=== PATIENT | female | born 1965 | race Caucasian/White ===

== ENCOUNTER → 2016-10-14 | Outpatient (CLI) | payer BC ==
--- NOTE | 2016-10-14 15:37 | XR ---
EXAMINATION TYPE: XR chest 2V DATE OF EXAM: 10/14/2016 1:19 PM COMPARISON: NONE HISTORY: Chest pain TECHNIQUE: Frontal and lateral views of the chest are obtained. FINDINGS: There is no focal air space opacity, pleural effusion, or pneumothorax seen. The cardiac silhouette size is within normal limits. Prominent lung finding could be indicative of underlying C OPD. There are bilateral breast prostheses. The osseous structures are intact. IMPRESSION: No acute cardiopulmonary process.
== END | disposition home or self-care (01) ==
LOC: RADXRMAIN 12:53
PROVIDERS: ATTEND Family Medicine
DX: R07.89 Other chest pain (principal)
CPT/HCPCS: 71020

== ENCOUNTER → 2017-01-19 | Outpatient (CLI) | payer BC ==
--- NOTE | 2017-01-20 07:55 | US ---
EXAMINATION TYPE: US carotid duplex BILAT DATE OF EXAM: 01/19/2017 6:03 PM COMPARISON: NONE CLINICAL HISTORY: I65.29 Occlusion and Stenosis of Carotid Artery. Stenosis EXAM MEASUREMENTS: RIGHT: Peak Systolic Velocity (PSV) cm/sec ----- Right CCA: 68.6 ----- Right ICA: 83.4 ----- Right ECA: 102.9 ICA/CCA ratio: 1.2 RIGHT: End Diastole cm/sec ----- Right CCA: 24.1 ----- Right ICA: 32.8 ----- Right ECA: 21.5 LEFT: Peak Systolic Velocity (PSV) cm/sec ----- Left CCA: 78.7 ----- Left ICA: 100.7 ----- Left ECA: 91.9 ICA/CCA ratio: 1.3 LEFT: End Diastole cm/sec ----- Left CCA: 29.2 ----- Left ICA: 35.8 ----- Left ECA: 20.4 VERTEBRALS (direction of flow): Right Vertebral: Antegrade Left Vertebral: Antegrade No elevated velocities, no significant stenosis IMPRESSION: I DO NOT SEE EVIDENCE OF A HEMODYNAMICALLY SIGNIFICANT STENOSIS IN EITHER CAROTID SYSTEM. Criteria for Assigning % of Stenosis / Diameter reduction (Estimation based on the indirect measurements of the internal carotid artery velocities (ICA PSV). 1. Normal (no stenosis)=ICA PSV < 125 cm/s: ratio < 2.0: ICA EDV<40 cm/s. 2. Less than 50% stenosis=ICA PSV < 125 cm/s: ratio < 2.0: ICA EDV<40 cm/s. 3. 50 to 69% stenosis=ICA PSV of 125 to 230 cm/s: ration 2.0 ? 4.0: ICA EDV 40-100 cm/s. 4. Greater than 70% stenosis to near occlusion= ICA PSV > 230 cm/s: ratio > 4.0: ICA EDV > 100 cm/s. 5. Near occlusion= ICA PSV velocities may be low or undetectable: variable ratio and ICA EDV. 6. Total occlusion=unable to detect flow.
== END ==
LOC: RADUSMAIN 17:47
PROVIDERS: ATTEND Family Medicine
DX: I65.29 Occlusion and stenosis of unspecified carotid artery (principal)
CPT/HCPCS: 93880

== ENCOUNTER → 2017-02-02 | Outpatient (CLI) | payer BC ==
--- NOTE | 2017-02-02 12:47 | US ---
EXAMINATION TYPE: US duplex aorta DATE OF EXAM: 02/02/2017 9:18 AM COMPARISON: NONE CLINICAL HISTORY: 51-year-old female R09.89 Other spec sx/signs involving circulatory/res. Abdominal bruit; smoker x many years at 1/2 pack per day. TECHNIQUE: Multiple sonographic images of the abdominal aorta were obtained. FINDINGS: EXAM MEASUREMENTS: Abdominal Aorta: Proximal: 2.1cm Transverse Mid: 1.8cm A/P Distal: 1.3cm Transverse Bifurcation: Right CIA1.10 cm A/P ; Left DMITRIY 1.0cm transverse There is prominent at this chronic change at the level of the mid abdominal aorta with some turbulenc e and accelerated flow across this level. NUCLEAR MEDICINE TECHNOLOGIST NOTES: Irregular intimal wall thickening is noted mid aorta with moderately elevated PSV of 214.1cm/s at this area. IMPRESSION: 1. No sonographic evidence for any significant abdominal aortic ectasia or aneurysm. 2. Prominent atherosclerotic change in the mid abdominal aorta narrowing the patent lumen.
== END | disposition home or self-care (01) ==
LOC: RADUSWWP 08:59
PROVIDERS: ATTEND Family Medicine
DX: I71.4 Abdominal aortic aneurysm, without rupture (principal)
CPT/HCPCS: 93979

== ENCOUNTER → 2018-07-27 | Outpatient (CLI) | payer BC ==
--- NOTE | 2018-07-31 12:05 | MM ---
Reason for exam: screening (asymptomatic). Last mammogram was performed 1 year ago. History: Patient has history of other cancer at age 38. Family history of breast cancer in maternal aunt. Retro-pectoral silicone gel implants in both breasts, 2003. Excisional biopsy of the right breast, 2002. Physical Findings: A clinical breast exam by your physician is recommended on an annual basis and results should be correlated with mammographic findings. MG 3D Screen Mammo Imp/Cad Bilateral CC, MLO, and ID view(s) were taken. Prior study comparison: July 20, 2017, bilateral MG screening mammo implant/CAD. January 15, 2014, CAD bilateral diagnostic mammogram. The breast tissue is heterogeneously dense. This may lower the sensitivity of mammography. Finding: There is an equal density (isodense), microlobulated lobulated mass in the posterior position of the left breast on ID and MLO view. Bilateral prothesis. ASSESSMENT: Incomplete: need additional imaging evaluation, BI-RAD 0 RECOMMENDATION: Special view mammogram of the left breast. If lesion persists on supplemental views, image directed ultrasound is recommended. [facility] will attempt to contact patient to return for supplemental views and ultrasound if indicated.
== END | disposition home or self-care (01) ==
LOC: RADMAMWWP 15:26
PROVIDERS: ATTEND Family Medicine
DX: Z12.31 Encounter for screening mammogram for malignant neoplasm of breast (principal)
CPT/HCPCS: 77063; 77067

== ENCOUNTER 2018-08-16 07:57 | Day surgery (SDC) | payer BC ==
[2018-08-14 12:25] VITALS: BMI 18.3
[~2018-08-16 07:57] MED LIST: DEXAMETHASONE SOD PHOSPHATE 10 MG/ML 1 ML VIAL IV ONE; HYDROmorphone 0.5 MG/0.5 ML SYRINGE IVP PRN; LACTATED RINGERS 1,000 ML IV SCH; LIDOCAINE 1% 20 ML VIAL (10MG/ML) FOR IV START INTRADERMA PRN; ONDANSETRON 4 MG/2 ML VIAL IVP ONE; SCOPOLAMINE 1.5MG/72HR PATCH TRANSDERM ONE
[2018-08-16 08:38] VITALS: TEMP 97.6
[2018-08-16] MEDS ORDERED: LIDOCAINE 1% INJ 10MG/ML (20 ML MDV) ONE (09:06)
[2018-08-16] MEDS ORDERED: PROPOFOL 10 MG/ML 20 ML VIAL IV ONE (09:06)
--- NOTE | 2018-08-16 09:43 | P.PCN ---
Date of Procedure: 08/16/18 Procedure(s) Performed: Procedure: Total colonoscopy. Preoperative diagnosis: Screening for neoplasia. Postoperative diagnosis: Exam within normal limits. Preparation: HalfLytely prep. Sedation: Was provided by anesthesia. Brief clinical history: The patient is a 53-year-old female who is scheduled for this evaluation for screening for neoplasia. There is family history of polyps in her grandmother but there is no FH of colon cancer. The patient had a prior exam 7-8 years ago. At this time, she has no abdominal complaints, bleeding or anemia. Procedure: With the patient on his left lateral decubitus position and after informed consent and adequate sedation, the perianal area was inspected and it did not show any fissures or fistulas. There were no masses felt on digital rectal examination. The Olympus CFH 190L video colonoscope was then inserted in the rectum in the usual fashion and advanced to the cecum. The mucosa appeared healthy. No polyps or tumors were seen or any obvious diverticular disease or other pathology. I retroflexed the endoscope in the rectum before the endoscope was withdrawn. The patient tolerated the procedure well. Plan: The patient was reassured. She will follow-up with you as planned and I recommended repeat exam in 10 years.
[2018-08-16 10:04] VITALS: BP 118/59; PULSE 72; RESP 16
== END 2018-08-16 10:38 | disposition home or self-care (01) ==
LOC: ORWHC2ENDO 07:57
DX: Z12.11 Encounter for screening for malignant neoplasm of colon (principal); Z83.71 Family history of colonic polyps; Z88.5 Allergy status to narcotic agent; E78.5 Hyperlipidemia, unspecified
CPT/HCPCS: 45378; J2001; J2704

== ENCOUNTER → 2018-12-13 | Outpatient (CLI) | payer BC ==
--- NOTE | 2018-12-13 13:03 | US ---
EXAMINATION TYPE: US pelvic complete DATE OF EXAM: 12/13/2018 COMPARISON: NONE CLINICAL HISTORY: R10.32 Left Lower Quad Pain, Left Lower Abd Pain; Hysterectomy; pelvic bloating x 1 month; patient stated had bowel blockage after colonoscopy TECHNIQUE: Transvaginal (TV) and Transabdominal (TA) . Transabdominal sonographic images of the pel vis were acquired. Transvaginal sonographic images were medically necessary to better assess the fol lowing anatomy: Ovaries Date of LMP: age 27 EXAM MEASUREMENTS: Uterus: surgically removed Bilateral Ovary: not seen due to overlying peristalsing bowel 1. Bilateral Adnexa: peristalsing bowel is noted 2. Posterior cul-de-sac: wnl IMPRESSION: 1. Postoperative pelvis.
== END | disposition home or self-care (01) ==
LOC: RADUSWWP 10:50
PROVIDERS: ATTEND Family Medicine
DX: R10.32 Left lower quadrant pain (principal); Z90.710 Acquired absence of both cervix and uterus
CPT/HCPCS: 76830; 76856

== ENCOUNTER → 2019-03-06 | Outpatient (CLI) | payer BC ==
--- NOTE | 2019-03-06 15:38 | XR ---
EXAMINATION TYPE: XR foot limited RT DATE OF EXAM: 03/06/2019 COMPARISON: NONE HISTORY: Pain TECHNIQUE: Two views are submitted. FINDINGS: The osseous structures are intact. There is no acute fracture or dislocation. Arthropathy of the f irst MTP joint noted. There is a small plantar calcaneal spur.. IMPRESSION: 1. No acute fracture or dislocation. If symptoms persist, follow-up exam in 7 to 10 days could be ob tained.
== END | disposition home or self-care (01) ==
LOC: RADXRMAIN 15:16
PROVIDERS: ATTEND Family Medicine
DX: M79.671 Pain in right foot (principal)

== ENCOUNTER → 2019-10-30 | Outpatient (CLI) | payer BC ==
--- NOTE | 2019-10-30 15:30 | FL ---
EXAMINATION TYPE: FL barium swallow w video DATE OF EXAM: 10/30/2019 COMPARISON: NONE HISTORY: Coughing and secretions. 32 seconds fluoroscopy time, no images obtained The patient was evaluated in the lateral projection during real-time fluoroscopy, during ingestion of barium mixed with solids and liquids. No aspiration or laryngeal penetration. See report from [facility]. IMPRESSION: Normal exam
== END | disposition home or self-care (01) ==
LOC: RADFLMAIN 11:14
PROVIDERS: ATTEND Family Medicine
DX: R09.89 Other specified symptoms and signs involving the circulatory and respiratory systems (principal)
CPT/HCPCS: 74230

== ENCOUNTER → 2020-09-28 | Outpatient (CLI) | payer BC ==
--- NOTE | 2020-09-28 12:45 | CT ---
EXAMINATION TYPE: CT sinus wo con DATE OF EXAM: 09/28/2020 COMPARISON: NONE HISTORY: Facial pain and pressure per patient. Chronic sinusitis per order. CT DLP: 558 mGycm. Automated Exposure Control for Dose Reduction was Utilized. TECHNIQUE: CT scan of the sinuses is performed without contrast, axial images are obtained, coronal r eformatted images are also reviewed. FINDINGS: There is 7 mm mucous retention cyst or polyp in the posterior inferior left maxillary sinus axial image 5. Remainder paranasal sinuses are clear. The ostiomeatal complex is patent bilaterally on coronal image 15. Visualized portion of mastoid air cells show no abnormal opacification. The globes are intact bilate rally. IMPRESSION: No acute sinusitis. The ostiomeatal complex is patent bilaterally.
== END | disposition home or self-care (01) ==
LOC: RADCTMAIN 12:25
PROVIDERS: ATTEND Otolaryngology
DX: J32.9 Chronic sinusitis, unspecified (principal); Z88.5 Allergy status to narcotic agent
CPT/HCPCS: 70486

== ENCOUNTER → 2020-10-19 | Outpatient (CLI) | payer BC ==
--- NOTE | 2020-10-20 08:45 | MM ---
Reason for exam: additional evaluation requested from prior study. Last mammogram was performed 2 years and 3 months ago. History: Patient has history of other cancer at age 27. Family history of breast cancer in maternal aunt. Retro-pectoral silicone gel implants in both breasts, 2003. Excisional biopsy of the right breast, 2002. Physical Findings: Nurse did not find any significant physical abnormalities on exam. MG Diag Mamm Implants MARY w CAD Bilateral CC, MLO, and ID view(s) were taken. Prior study comparison: August 02, 2018, left breast MG 3d work up w/cad w/imp LT. July 27, 2018, bilateral MG 3d screen mammo imp/cad. The breast tissue is heterogeneously dense. This may lower the sensitivity of mammography. Stable benign calcifications. There is no discrete abnormality. Bilateral implants are intact. No significant new findings when compared with previous films. These results were verbally communicated with the patient and result sheet given to the patient on 10/19/20. ASSESSMENT: Benign, BI-RAD 2 RECOMMENDATION: Routine screening mammogram of both breasts in 1 year.
== END | disposition home or self-care (01) ==
LOC: RADMAMWWP 14:45
PROVIDERS: ATTEND Family Medicine
DX: R92.1 Mammographic calcification found on diagnostic imaging of breast (principal); N64.89 Other specified disorders of breast
CPT/HCPCS: 77066

== ENCOUNTER 2020-12-02 10:02 | Day surgery (SDC) | payer BC ==
[2020-11-30 12:24] VITALS: BMI 18.8
--- NOTE | 2020-12-02 07:17 | P.GSHP ---
History of Present Illness H&P Date: 12/02/20 CHIEF COMPLAINT: GERD HISTORY OF PRESENT ILLNESS: The patient is a 55-year-old male who presents reports gastroesophageal reflux disease. Upper endoscopy was offered for further evaluation and management. PAST MEDICAL HISTORY: Please see list. PAST SURGICAL HISTORY: Please see list. MEDICATIONS: Please see list. ALLERGIES: Please see list. SOCIAL HISTORY: No illicit drug use FAMILY HISTORY: No reports of Crohn disease or ulcerative colitis. REVIEW OF ORGAN SYSTEMS: CONSTITUTIONAL: No reports of fevers or chills. GI: Denies any blood in stools or constipation. PHYSICAL EXAM: VITAL SIGNS: Stable GENERAL: Well-developed and pleasant in no acute distress. HEENT: No scleral icterus. Extraocular movements grossly intact. Moist buccal mucosa. NECK: Supple without lymphadenopathy. CHEST: Unlabored respirations. Equal bilateral excursions. CARDIOVASCULAR: Regular rate and rhythm. Distal 2+ pulses. ABDOMEN: Soft, nondistended. MUSCULOSKELETAL: No clubbing, cyanosis, or edema. ASSESSMENT: 1. Gastroesophageal reflux disease PLAN: 1. Recommend proceeding with an upper endoscopy Past Medical History Past Medical History: GERD/Reflux Additional Past Medical History / Comment(s): heart murmur, states hx irregular heart beat, carotid blockage, hx anemia, sinus problems-states swelling and sinus drainage, unable to smell for a couple years., dysphagia. 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 Past Anesthesia/Blood Transfusion Reactions: No Reported Reaction Past Psychological History: No Psychological Hx Reported Smoking Status: Current every day smoker Past Alcohol Use History: Rare Additional Past Alcohol Use History / Comment(s): has smoked for about 30 years 1/2 ppd Past Drug Use History: None Reported - Past Family History Father Family Medical History: Cancer Additional Family Medical History / Comment(s): Prostate CA Medications and Allergies Home Medications Medication Instructions Recorded Confirmed Type L.acidoph,Paracasei, B.lactis 1 each PO DAILY 08/14/18 11/30/20 History [Probiotic] Arjuna Supplement 1 dose PO DIRECTED 11/30/20 History Calcium/Magnesium/Zinc 1 each PO DAILY 11/30/20 11/30/20 History [Iclenqb-Hqcfxjanb-Geof Tablet] Cholecalciferol [Vitamin D3 (25 25 mcg PO DAILY 11/30/20 11/30/20 History Mcg = 1000 Iu)] Ibuprofen [Advil] 400 mg PO DIRECTED PRN 11/30/20 11/30/20 History Kelp 1 dose PO DIRECTED 11/30/20 History Multivitamins, Thera [Multivitamin 1 tab PO DAILY 11/30/20 11/30/20 History (formulary)] Repatha (Unknown Dose) 1 dose SQ DIRECTED 11/30/20 History Vitamin B Complex 1 each PO DAILY 11/30/20 11/30/20 History Zzz Quil 1 dose PO HS PRN 11/30/20 History Allergies Allergy/AdvReac Type Severity Reaction Status Date / Time morphine Allergy Rash/Hives Verified 11/30/20 11:51
[~2020-12-02 10:02] MED LIST changes: -DEXAMETHASONE SOD PHOSPHATE 10 MG/ML 1 ML VIAL IV ONE; -HYDROmorphone 0.5 MG/0.5 ML SYRINGE IVP PRN; +LIDOCAINE 1% (10MG/ML) FOR IV START INTRADERMA PRN; -LIDOCAINE 1% 20 ML VIAL (10MG/ML) FOR IV START INTRADERMA PRN; -ONDANSETRON 4 MG/2 ML VIAL IVP ONE; -SCOPOLAMINE 1.5MG/72HR PATCH TRANSDERM ONE
[2020-12-02 10:43] VITALS: TEMP 98.8
[2020-12-02] MEDS ORDERED: LIDOCAINE 1% INJ 10MG/ML (20 ML MDV) ONE (11:17)
[2020-12-02] MEDS ORDERED: PROPOFOL 10 MG/ML 20 ML VIAL IV ONE (11:17)
--- NOTE | 2020-12-02 11:40 | P.PCN ---
Date of Procedure: 12/02/20 Description of Procedure: PREOPERATIVE DIAGNOSIS: Dysphagia. POSTOPERATIVE DIAGNOSIS: Dysphagia. Esophageal stricture Duodenal ulcer OPERATION: Esophagogastroduodenoscopy with rigid dilator over the guidewire 51 Fr. Esophagogastroduodenoscopy with cold forceps biopsies along antrum SURGEON: Ileana Ruiz MD ANESTHESIA: MAC. INDICATIONS: The patient is a 49-year-old female who presents with a history of dysphagia. Benefits and risks of the procedure were described. Informed consent was obta ined. DESCRIPTION: The patient was brought into the endoscopy suite and laid in the left lateral decubitus position. After a timeout was confirmed, the procedure was initiated. An Olympus gastroscope was passed and the stomach was entered. Mild gastritis was identified. The scope was advanced to the duodenum which was remarkable for duodenal ulcer. Retroflexion the scope confirmed a Hill grade 1 lower esophageal valve. Next using an Irish rigid dilator, a guidewire was placed through the pediatric gastroscope. Next the scope was withdrawn. A 51-Prydeinig rigid Irish dilator was passed carefully along the posterior oropharynx to 50 cm and left in place for 2-3 minutes stretch. The dilator was withdrawn including the guidewire. The scope was reentered along the posterior oropharynx with no findings of full-thickness tear of the upper esophageal sphincter. Next, inflammation of the antrum was identified with cold forceps biopsies obtained. No full-thickness injury was encountered. The GI tract was desufflated. The patient tolerated the procedure well. FINDINGS: Squamocolumnar junction unremarkable at 38 cm. Upper esophageal stricture without ulceration Irish rigid dilator 51-Prydeinig completed. No hiatus hernia Diffuse gastritis. Hill grade 1 lower esophageal valve. No LA grade A esophagitis. RECOMMENDATIONS: Upper endoscopy as needed Plan - Discharge Summary New Discharge Prescriptions: Continue L.acidoph,Paracasei, B.lactis [Probiotic] 1 each PO DAILY Repatha (Unknown Dose) 1 dose SQ DIRECTED Cholecalciferol [Vitamin D3 (25 Mcg = 1000 Iu)] 25 mcg PO DAILY Kelp 1 dose PO DIRECTED Calcium/Magnesium/Zinc [Javyulh-Kcjsahiar-Dsla Tablet] 1 each PO DAILY Ibuprofen [Advil] 400 mg PO DIRECTED PRN PRN Reason: Pain Vitamin B Complex 1 each PO DAILY Multivitamins, Thera [Multivitamin (formulary)] 1 tab PO DAILY Arjuna Supplement 1 dose PO DIRECTED Zzz Quil 1 dose PO HS PRN PRN Reason: Insomnia Discharge Medication List L.acidoph,Paracasei, B.lactis [Probiotic] 1 each PO DAILY 08/14/18 [History] Arjuna Supplement 1 dose PO DIRECTED 11/30/20 [History] Calcium/Magnesium/Zinc [Phnhjif-Hzwspdtjc-Azwn Tablet] 1 each PO DAILY 11/30/20 [History] Cholecalciferol [Vitamin D3 (25 Mcg = 1000 Iu)] 25 mcg PO DAILY 11/30/20 [History] Ibuprofen [Advil] 400 mg PO DIRECTED PRN 11/30/20 [History] Kelp 1 dose PO DIRECTED 11/30/20 [History] Multivitamins, Thera [Multivitamin (formulary)] 1 tab PO DAILY 11/30/20 [History] Repatha (Unknown Dose) 1 dose SQ DIRECTED 11/30/20 [History] Vitamin B Complex 1 each PO DAILY 11/30/20 [History] Zzz Quil 1 dose PO HS PRN 11/30/20 [History] Follow up Appointment(s)/Referral(s): Ileana Ruiz MD [STAFF PHYSICIAN] - 12/08/20 Patient Instructions/Handouts: Esophageal Dilation (DC) Activity/Diet/Wound Care/Special Instructions: Diet as tolerated Discharge Disposition: HOME SELF-CARE
[2020-12-02 12:18] VITALS: BP 128/65; PULSE 69; RESP 18
== END 2020-12-02 13:00 | disposition home or self-care (01) ==
LOC: ORWHC2ENDO 10:02
PROVIDERS: ATTEND Surgery Plastic and Reconstructive Surgery
DX: K22.2 Esophageal obstruction (principal); K29.70 Gastritis, unspecified, without bleeding; K26.9 Duodenal ulcer, unspecified as acute or chronic, without hemorrhage or perforation; K21.9 Gastro-esophageal reflux disease without esophagitis; R01.1 Cardiac murmur, unspecified; Z98.891 History of uterine scar from previous surgery; Z90.710 Acquired absence of both cervix and uterus; Z90.89 Acquired absence of other organs; Z85.820 Personal history of malignant melanoma of skin; F17.210 Nicotine dependence, cigarettes, uncomplicated; Z80.42 Family history of malignant neoplasm of prostate; Z79.899 Other long term (current) drug therapy; Z88.5 Allergy status to narcotic agent; I65.29 Occlusion and stenosis of unspecified carotid artery
CPT/HCPCS: 88305; 43239; 43248; J2001; J2704; 43249

== ENCOUNTER → 2021-06-14 | Outpatient (CLI) | payer BC ==
--- NOTE | 2021-06-14 13:14 | US ---
EXAMINATION TYPE: US thyroid st tissue head/neck DATE OF EXAM: 06/14/2021 COMPARISON: NONE CLINICAL HISTORY: E05.90 Thyrotoxicosis, unspecified. GLAND SIZE: Right Lobe: 5.2 x 1.4 x 1.3 cm Overall Parenchyma: homogenous Left Lobe: 4.9 x 1.4 x 1.3 cm Overall Parenchyma: homogeneous Isthmus Thickness: 0.3 cm NODULES RIGHT: # of nodules measured on right: 1 1. 0.5 X 0.3 x 0.3 cm, lower, solid or almost completely solid, hypoechoic nodule, which is wider t lopez tall, with smooth margins, without echogenic foci. TR 3. No prior Multiple subcentimeter nodules probable largest measured above. LEFT: # of nodules measured on left: 1. 0.9 X 0.6 x 0.6 cm, lower, mixed cystic and solid, very hypoechoic nodule, which is wider than t all, with smooth margins, without echogenic foci. Tear 3. No prior ISTHMUS: # of nodules measured in the isthmus: 0 Bilateral neck scanned, no evidence of lymphadenopathy. IMPRESSION: 1. Mildly suspicious nodule. 2017 ACR TI-RADS LEVEL: TR-RADS 3 - Mildly Suspicious: Follow if > 1.5 cm, FNA if > 2.5 cm *Highest TI-RADS level nodule reported
== END | disposition home or self-care (01) ==
LOC: RADUSWWP 12:21
PROVIDERS: ATTEND Family Medicine
DX: E04.1 Nontoxic single thyroid nodule (principal)
CPT/HCPCS: 76536

== ENCOUNTER → 2021-06-16 | Outpatient (CLI) | payer BC ==
--- NOTE | 2021-06-17 11:01 | NM ---
EXAMINATION TYPE: NM thyroid image w uptake DATE OF EXAM: 06/17/2021 COMPARISON: Ultrasound 06/14/2021 HISTORY: 56-year-old female E05.90, thyrotoxicosis TECHNIQUE: Thyroid iodine uptake is calculated and images performed after the oral administration of 309 uCi 1-123 Capsule. FINDINGS: There is normal distribution of activity throughout the gland. The 4 hour iodine uptake is calculated at 7.5% (normal range 8-14%). The 24-hour iodine uptake is calculated at 19.6% (normal range 15-35%). IMPRESSION: Normal thyroid scan. The 4 hour uptake is borderline diminished but the 24-hour iodine uptake is with in the normal range. Overall exam appears relatively normal.
== END | disposition home or self-care (01) ==
LOC: RADNMMAIN 08:57
PROVIDERS: ATTEND Family Medicine
DX: E05.90 Thyrotoxicosis, unspecified without thyrotoxic crisis or storm (principal)
CPT/HCPCS: 78014; A9516

== ENCOUNTER → 2022-08-16 | Outpatient (CLI) | payer BC ==
--- NOTE | 2022-08-16 17:34 | US ---
EXAMINATION TYPE: US thyroid st tissue head/neck DATE OF EXAM: 08/16/2022 COMPARISON: NONE CLINICAL HISTORY: E04.1 SINGLE THYROID NODULE. GLAND SIZE: Right Lobe: cm Overall Parenchyma: Left Lobe: cm Overall Parenchyma: Isthmus Thickness: cm NODULES RIGHT: # of nodules measured on right: 1. X x cm, , , nodule, which is , with margins, echogenic foci. Prior size: x x cm 2. X x cm, , , nodule, which is , with margins, echogenic foci. Prior size: x x cm 3. X x cm, , , nodule, which is , with margins, echogenic foci. Prior size: x x cm LEFT: # of nodules measured on left: 1. X x cm, , , nodule, which is , with margins, echogenic foci. Prior size: x x cm 2. X x cm, , , nodule, which is , with margins, echogenic foci. Prior size: x x cm 3. X x cm, , , nodule, which is , with margins, echogenic foci. Prior size: x x cm ISTHMUS: # of nodules measured in the isthmus: 1. X x cm , nodule, which is , with margins, echogenic foci. Prior size: x x cm Bilateral neck scanned, no evidence of lymphadenopathy. IMPRESSION: 2017 ACR TI-RADS LEVEL: *Highest TI-RADS level nodule reported EXAMINATION TYPE: US thyroid st tissue head/neck DATE OF EXAM: 08/16/2022 COMPARISON: NONE CLINICAL HISTORY: E04.1 SINGLE THYROID NODULE. GLAND SIZE: Right Lobe: 5.6 x 1.3 x 1.4 cm Overall Parenchyma: homogeneous Left Lobe: 4.6 x 1.1 x 1.3 cm Overall Parenchyma: homogeneous Isthmus Thickness: 0.3 cm NODULES RIGHT: # of nodules measured on right: 2 1. 0.7 X 0.4 x 0.6 cm, upper, cystic or almost completely cystic, anechoic nodule, which is wider t lopez tall, with smooth margins, with echogenic foci. Not previously measured 2. 0.5 X 0.3 x 0.4 cm, lower, solid or almost completely solid, isoechoic nodule, which is wider th an tall, with smooth margins, without echogenic foci. Prior size: 0.5 x 0.3 x 0.3 cm LEFT: # of nodules measured on left: 1. 1.0 X 0.6 x 0.9 cm, upper, mixed cystic and solid, anechoic nodule, which is wider than tall, w ith ill-defined margins, without echogenic foci. Prior size: 0.9 x 0.6 x 0.6 cm ISTHMUS: # of nodules measured in the isthmus: 0 Bilateral neck scanned, no evidence of lymphadenopathy. Multiple subcentimeter cysts noted. IMPRESSION: 1. No suspicious thyroid nodules. 2. Thyroid heterogeneity. 2017 ACR TI-RADS LEVEL: TR-RADS 1 - BENIGN: No FNA *Highest TI-RADS level nodule reported
== END | disposition home or self-care (01) ==
LOC: RADUSWWP 06:54
PROVIDERS: ATTEND Family Medicine
DX: E04.1 Nontoxic single thyroid nodule (principal)
CPT/HCPCS: 76536

== ENCOUNTER → 2023-10-25 | Outpatient (CLI) | payer BC ==
[2023-10-26 03:10] LABS: Rheumatoid Factor, Qnt <15 IU/mL (0-15)
[2023-10-26 03:28] LABS: Hepatitis A Antibody IgM Nonreactive; Hepatitis B Core IgM Nonreactive; Hepatitis B Surface Antigen Nonreactive; Hepatitis C IgG Antibody Nonreactive
[2023-10-26 08:50] LABS: Angiotensin-1 Converting Enz. 29 U/L (8-52)
[2023-10-26 11:32] LABS: HLA B27 NEGATIVE
== END | disposition home or self-care (01) ==
LOC: LABWHC1 15:15
PROVIDERS: ATTEND Optometrist
DX: H20.022 Recurrent acute iridocyclitis, left eye (principal)
CPT/HCPCS: 36415; 80074; 82164; 85549; 85652; 86038; 86140; 86431; 86618; 86812

== ENCOUNTER → 2024-03-27 | Outpatient (CLI) | payer BC ==
--- NOTE | 2024-04-04 21:25 | MM ---
Reason for Exam: Hx of breast augmentation, asymptomatic. Last mammogram was performed 3 year(s) and 5 month(s) ago. Patient History: Menarche at age 12. First Full-Term at age 17. Hysterectomy at age 25. Other cancer, age 27. 2002, Excisional Biopsy on the Right side. 2003, Bilateral Implants. Maternal aunt had breast cancer. Risk Values: Cat 5 year model risk: 1.1%. NCI Lifetime model risk: 5.7%. Prior Study Comparison: 07/27/2018 Bilateral Screening Mammogram, [facility]. 08/02/2018 Left Diagnostic Mammogram, [facility]. 10/19/2020 Bilateral Diagnostic Mammogram, [facility]. Tissue Density: There are scattered areas of fibroglandular density. Findings: Analyzed By CAD. Bilateral retropectoral saline implants. Bilateral oil cyst calcifications. Bilateral areas of asymmetric density remain unchanged. No significant change from prior exams. Overall Assessment: Benign, BI-RAD 2 Management: Screening Mammogram of both breasts in 1 year. . Patient should continue monthly self-breast exams. A clinical breast exam by your physician is recommended on an annual basis. This exam should not preclude additional follow-up of suspicious palpable abnormalities. Note on Cat scores and lifetime risk: 1. A Cat score greater than 3% is considered moderate risk. If this is the case, consider specialist referral to assess eligibility for a risk reducing agent. 2. If overall lifetime risk for the development of breast cancer is 20% or higher, the patient may qualify for future screening with alternating mammogram and breast MRI. Electronically signed and approved by: Ritesh Carrero M.D. Radiologist
== END | disposition home or self-care (01) ==
LOC: RADMAMWWP 09:59
PROVIDERS: ATTEND Family Medicine
DX: Z12.31 Encounter for screening mammogram for malignant neoplasm of breast (principal); R92.323 Mammographic fibroglandular density, bilateral breasts; Z80.3 Family history of malignant neoplasm of breast
CPT/HCPCS: 77067